=== PATIENT | female | born 1965 | race African-American/Black ===

== ENCOUNTER 2021-06-20 09:23 | Inpatient (IN) | payer OTHER ==
[~2021-06-20] VITALS: Ht 172.7 cm; Wt 88.5 kg
[2021-06-20 11:19] LABS: BASOPHILS % 0.2 % (0.0-2.0); EOSINOPHILS % 2.4 % (0.0-5.0); HEMATOCRIT. 31.7 % (36.0-48.0); HEMOGLOBIN. 10.1 g/dL (12.0-16.0); LYMPHOCYTES % 11.3 % (20.0-50.0); MEAN CORPUSCULAR HEMOGLOBIN 21.1 pg (28.0-32.0); MEAN CORPUSCULAR VOLUME 66.5 fL (81.0-99.0); MEAN PLATELET VOLUME 8.6 fl (7.4-10.4); MONOCYTES % 10.7 % (2.0-8.0); NEUTROPHILS % 75.4 % (40.0-76.0); PLATELET 403 x1000/uL (130-400); RED BLOOD CELL COUNT 4.76 mill/uL (4.2-5.4); RED CELL DISTRIBUTION WIDTH 22.1 % (11.6-14.6)
[2021-06-20 11:23] LABS: CHLORIDE 97 mEq/L (98-107)
[2021-06-20 11:31] LABS: CREATINE KINASE 51 IU/L (26-192); D-DIMER 1.05 mg/L FEU (<0.50); INR 1.1; PROTHROMBIN TIME 11.5 sec (9.6-11.0)
[2021-06-20 12:04] LABS: BG BASE EXCESS 4.1 mmol/L (-2.0-2.0); BG CARBOXYHEMOGLOBIN 0.3 % (0.5-1.5); BG DEOXYHEMOGLOBIN 3.4 % (0.0-5.0); BG FRACTION INSPIRED OXYGEN 32; BG HCO3 ACT 27.2 mmol/L (22.0-26.0); BG METHEMOGLOBIN 0.3 % (0.0-1.5); BG OXYGEN SATURATION 96.6 % (92.0-98.5); BG PCO2 35.4 mmHg (35.0-45.0); BG PH 7.503 (7.350-7.450); BG PO2 85.8 mmHg (75.0-100.0); BG SAMPLE SITE RIGHT BRACHIAL; BG TOTAL HEMOGLOBIN 11.2 g/dL (12.0-18.0)
[2021-06-20 12:23] LABS: PLATELET ESTIMATE SLIGHTLY INCREASED
[2021-06-20 12:25] LABS: FIBRINOGEN > 900 mg/dL (200-400)
[2021-06-20] MEDS ORDERED: CEFTRIAXONE 1 G PREMIX 50 ML IV ONE (13:15)
[2021-06-20] MEDS ORDERED: ONDANSETRON HCL 4MG/2ML INJ IV PRN (13:15)
[2021-06-20] MEDS ORDERED: AZITHROMYCIN 500 MG in DEXT 5% WATER 250 ML IV ONE (13:15)
[2021-06-20] MEDS: ACETAMINOPHEN 325MG TABLET PO PRN (13:39)
[2021-06-20] MEDS ORDERED: POTASSIUM CHLORIDE 20MEQ TABLET SR PO NR (15:00)
[2021-06-20 16:45] VITALS: BP 138/90
[2021-06-20] MEDS ORDERED: LOSA25TA26 MT (17:24)
[2021-06-20] MEDS ORDERED: ALBU2.5V13 NEB (17:24)
[2021-06-20] MEDS: ENOXAPARIN 40MG/0.4ML SYR SUBCUT SCH (18:29)
[2021-06-20 20:00] VITALS: BP 121/81
[2021-06-21] VITALS: BP 131/85
[2021-06-21] MEDS: KETOROLAC 15MG/ML VIAL IV PRN ×2 (00:44→21:29)
[2021-06-21 04:00] VITALS: BP 119/63
[2021-06-21] MEDS: DEXAMETHASONE 6MG TABLET PO SCH (07:54)
[2021-06-21] MEDS: ACETAMINOPHEN 325MG TABLET PO PRN (07:54)
[2021-06-21] MEDS: CEFTRIAXONE 1,000 MG in DEXTROSE 5% WATER 50 ML IV SCH (07:54)
[2021-06-21] MEDS: AZITHROMYCIN 250 MG TABLET PO SCH (07:55)
[2021-06-21 08:00] VITALS: BP 117/64
[2021-06-21 12:00] VITALS: BP 129/83
[2021-06-21] MEDS ORDERED: CEFTRIAXONE 1 G PREMIX 50 ML IV SCH (14:00)
[2021-06-21] MEDS ORDERED: IPRATROPIUM/ALBUTEROL 0.5-3(2.5)MG/3ML NEB HHN PRN (15:45)
[2021-06-21 16:00] VITALS: BP 125/77
[2021-06-21 16:26] LABS: BASOPHILS % 0.2 % (0.0-2.0); EOSINOPHILS % 0.2 % (0.0-5.0); HEMATOCRIT. 29.9 % (36.0-48.0); HEMOGLOBIN. 9.7 g/dL (12.0-16.0); LYMPHOCYTES % 12.3 % (20.0-50.0); MEAN CORPUSCULAR HEMOGLOBIN 21.7 pg (28.0-32.0); MEAN CORPUSCULAR VOLUME 66.6 fL (81.0-99.0); MEAN PLATELET VOLUME 8.8 fl (7.4-10.4); MONOCYTES % 4.5 % (2.0-8.0); NEUTROPHILS % 82.8 % (40.0-76.0); PLATELET 439 x1000/uL (130-400); RED BLOOD CELL COUNT 4.49 mill/uL (4.2-5.4); RED CELL DISTRIBUTION WIDTH 21.7 % (11.6-14.6)
[2021-06-21 16:45] LABS: CHLORIDE 98 mEq/L (98-107)
[2021-06-21] MEDS: ENOXAPARIN 40MG/0.4ML SYR SUBCUT SCH (18:09)
[2021-06-21 20:00] VITALS: BP 131/64
[2021-06-22] VITALS: BP 131/77
[2021-06-22 04:00] VITALS: BP 139/78
[2021-06-22 05:24] LABS: CLARITY URINE CLEAR (CLEAR); COLOR URINE YELLOW (YELLOW); KETONES URINE NEGATIVE (NEGATIVE); LEUKOCYTE ESTERASE URINE NEGATIVE (NEGATIVE); NITRITE URINE NEGATIVE (NEGATIVE); OCCULT BLOOD URINE NEGATIVE (NEGATIVE); PROTEIN URINE TRACE (NEGATIVE); SPECIFIC GRAVITY URINE 1.016 (1.005-1.030)
[2021-06-22] MEDS: KETOROLAC 15MG/ML VIAL IV PRN (06:15)
[2021-06-22 08:03] VITALS: BP 146/87
[2021-06-22] MEDS: DEXAMETHASONE 6MG TABLET PO SCH (09:18)
[2021-06-22] MEDS: LOSARTAN POTASSIUM 25 MG TABLET PO SCH (11:03)
[2021-06-22] MEDS: CEFTRIAXONE 1,000 MG in DEXTROSE 5% WATER 50 ML IV SCH (11:03)
[2021-06-22] MEDS: AZITHROMYCIN 250 MG TABLET PO SCH (11:03)
[2021-06-22 12:20] VITALS: BP 138/89
[2021-06-22 16:00] VITALS: BP 141/93
[2021-06-22] MEDS: HYDROCHLOROTHIAZIDE 12.5MG CAPSULE PO SCH (16:21)
[2021-06-22] MEDS: ENOXAPARIN 40MG/0.4ML SYR SUBCUT SCH (16:21)
[2021-06-22 20:00] VITALS: BP 142/80
[2021-06-22] MEDS: HYDROCODONE/ACETAMINOPHEN 5/325MG TABLET PO PRN (20:42)
[2021-06-22] MEDS ORDERED: NALOXONE HCL 0.4MG/ML VIAL IV PRN (22:45)
[2021-06-23] VITALS: BP 131/87
[2021-06-23 04:00] VITALS: BP 125/57
[2021-06-23 08:11] VITALS: BP 130/85
[2021-06-23] MEDS: AZITHROMYCIN 250 MG TABLET PO SCH (09:09)
[2021-06-23] MEDS: HYDROCHLOROTHIAZIDE 12.5MG CAPSULE PO SCH (09:09)
[2021-06-23] MEDS: DEXAMETHASONE 6MG TABLET PO SCH (09:09)
[2021-06-23] MEDS: LOSARTAN POTASSIUM 25 MG TABLET PO SCH (09:09)
[2021-06-23] MEDS: CEFTRIAXONE 1,000 MG in DEXTROSE 5% WATER 50 ML IV SCH (11:44)
[2021-06-23] MEDS: HYDROCODONE/ACETAMINOPHEN 5/325MG TABLET PO PRN (11:54)
[2021-06-23 12:00] VITALS: BP 155/89
[2021-06-23 16:05] VITALS: BP 150/99
[2021-06-23] MEDS: ENOXAPARIN 40MG/0.4ML SYR SUBCUT SCH (16:36)
[2021-06-23 20:00] VITALS: BP 109/76
[2021-06-24] VITALS: BP 130/83
[2021-06-24 04:00] VITALS: BP 138/92
[2021-06-24 08:00] VITALS: BP 142/96
[2021-06-24] MEDS: GUAIFENESIN-DM 200MG-20MG/10ML UDC PO PRN (09:05)
[2021-06-24] MEDS: HYDROCHLOROTHIAZIDE 12.5MG CAPSULE PO SCH (09:05)
[2021-06-24] MEDS: DEXAMETHASONE 6MG TABLET PO SCH (09:05)
[2021-06-24] MEDS: LOSARTAN POTASSIUM 25 MG TABLET PO SCH (09:05)
[2021-06-24] MEDS: AZITHROMYCIN 250 MG TABLET PO SCH (09:05)
[2021-06-24] MEDS: CEFTRIAXONE 1,000 MG in DEXTROSE 5% WATER 50 ML IV SCH (09:05)
[2021-06-24 12:00] VITALS: BP 135/91
[2021-06-24] MEDS: THROAT LOZENGES-BENZOCAINE/MENTH/CETYLPYRD CL LOZENGES MM PRN ×2 (12:25→22:35)
[2021-06-24] MEDS: ACETAMINOPHEN 325MG TABLET PO PRN (12:25)
[2021-06-24 16:00] VITALS: BP 134/82
[2021-06-24] MEDS: ENOXAPARIN 40MG/0.4ML SYR SUBCUT SCH (16:11)
[2021-06-24 19:51] VITALS: BP 126/81
[2021-06-25] VITALS: BP 139/82
[2021-06-25 04:00] VITALS: BP 144/89
[2021-06-25 08:00] VITALS: BP 145/93
[2021-06-25] MEDS: LOSARTAN POTASSIUM 25 MG TABLET PO SCH (08:49)
[2021-06-25] MEDS: HYDROCHLOROTHIAZIDE 12.5MG CAPSULE PO SCH (08:49)
[2021-06-25] MEDS: DEXAMETHASONE 6MG TABLET PO SCH (08:49)
[2021-06-25] MEDS: CEFTRIAXONE 1,000 MG in DEXTROSE 5% WATER 50 ML IV SCH (08:49)
[2021-06-25 12:00] VITALS: BP 129/84
[2021-06-25 16:00] VITALS: BP 149/93
[2021-06-25] MEDS: ENOXAPARIN 40MG/0.4ML SYR SUBCUT SCH (17:58)
[2021-06-25 20:00] VITALS: BP 151/97
[2021-06-25] MEDS: ACETAMINOPHEN 325MG TABLET PO PRN (21:13)
[2021-06-26] VITALS: BP 123/91
[2021-06-26 04:00] VITALS: BP 145/97
[2021-06-26 08:00] VITALS: BP 135/87
[2021-06-26] MEDS: HYDROCHLOROTHIAZIDE 12.5MG CAPSULE PO SCH (08:32)
[2021-06-26] MEDS: DEXAMETHASONE 6MG TABLET PO SCH (08:32)
[2021-06-26] MEDS: LOSARTAN POTASSIUM 25 MG TABLET PO SCH (08:33)
[2021-06-26 12:00] VITALS: BP 158/95
[2021-06-26] MEDS: ACETAMINOPHEN 325MG TABLET PO PRN (14:05)
[2021-06-26 16:00] VITALS: BP 135/91
[2021-06-26] MEDS: ENOXAPARIN 40MG/0.4ML SYR SUBCUT SCH (17:53)
[2021-06-26] MEDS: HYDROCODONE/ACETAMINOPHEN 5/325MG TABLET PO PRN (19:55)
[2021-06-26 20:00] VITALS: BP 118/79
[2021-06-27] VITALS: BP 140/85
[2021-06-27 04:00] VITALS: BP 141/84
[2021-06-27 08:00] VITALS: BP 130/88
[2021-06-27] MEDS: LOSARTAN POTASSIUM 25 MG TABLET PO SCH (09:10)
[2021-06-27] MEDS: HYDROCHLOROTHIAZIDE 12.5MG CAPSULE PO SCH (09:10)
[2021-06-27] MEDS: HYDROCODONE/ACETAMINOPHEN 5/325MG TABLET PO PRN ×4 (09:10→23:34)
[2021-06-27] MEDS: DEXAMETHASONE 6MG TABLET PO SCH (09:10)
[2021-06-27 12:00] VITALS: BP 142/100
[2021-06-27] MEDS ORDERED: ALBU18HF2 IH (12:37)
[2021-06-27 16:00] VITALS: BP 133/81
[2021-06-27] MEDS: ENOXAPARIN 40MG/0.4ML SYR SUBCUT SCH (16:40)
[2021-06-27 20:00] VITALS: BP 143/91
[2021-06-28] VITALS: BP 155/79
[2021-06-28 04:00] VITALS: BP 134/82
[2021-06-28 08:00] VITALS: BP 152/91
[2021-06-28] MEDS: LOSARTAN POTASSIUM 25 MG TABLET PO SCH ×2 (08:48→17:57)
[2021-06-28] MEDS: HYDROCHLOROTHIAZIDE 12.5MG CAPSULE PO SCH (08:48)
[2021-06-28] MEDS: DEXAMETHASONE 6MG TABLET PO SCH (08:48)
[2021-06-28 12:00] VITALS: BP 162/92
[2021-06-28 16:30] VITALS: BP 130/90
[2021-06-28 17:55] LABS: HEMATOCRIT 33.2 % (36.0-48.0); HEMOGLOBIN 10.5 g/dL (12.0-16.0); MEAN CORPUSCULAR HEMOGLOBIN 21.2 pg (28.0-32.0); MEAN CORPUSCULAR VOLUME 66.8 fL (81.0-99.0); PLATELET 689 x1000/uL (130-400); RED BLOOD CELL COUNT 4.97 mill/uL (4.2-5.4); RED CELL DISTRIBUTION WIDTH 21.7 % (11.6-14.6)
[2021-06-28] MEDS: ENOXAPARIN 40MG/0.4ML SYR SUBCUT SCH (17:56)
[2021-06-28 18:06] LABS: CHLORIDE 102 mEq/L (98-107)
[2021-06-28 20:30] VITALS: BP 133/91
[2021-06-28] MEDS: HYDROCODONE/ACETAMINOPHEN 5/325MG TABLET PO PRN (21:54)
[2021-06-28] MEDS ORDERED: IOHEXOL-350 100 ML BOTTLE ONE (23:25)
[2021-06-29] VITALS: BP 135/86
[2021-06-29 04:00] VITALS: BP 141/88
[2021-06-29 08:00] VITALS: BP 140/94
[2021-06-29] MEDS: LOSARTAN POTASSIUM 25 MG TABLET PO SCH ×2 (09:04→16:46)
[2021-06-29] MEDS: HYDROCHLOROTHIAZIDE 12.5MG CAPSULE PO SCH (09:04)
[2021-06-29] MEDS: DEXAMETHASONE 6MG TABLET PO SCH (09:04)
[2021-06-29 12:00] VITALS: BP 134/89
[2021-06-29] MEDS: ENOXAPARIN 40MG/0.4ML SYR SUBCUT SCH (16:46)
[2021-06-29 20:00] VITALS: BP 135/80
[2021-06-29] MEDS: ACETAMINOPHEN 325MG TABLET PO PRN (21:22)
[2021-06-30 04:00] VITALS: BP 144/85
[2021-06-30 08:00] VITALS: BP 134/91
[2021-06-30] MEDS: LOSARTAN POTASSIUM 25 MG TABLET PO SCH ×2 (09:09→17:14)
[2021-06-30] MEDS: DEXAMETHASONE 6MG TABLET PO SCH (09:09)
[2021-06-30] MEDS: HYDROCHLOROTHIAZIDE 12.5MG CAPSULE PO SCH (09:09)
[2021-06-30 12:00] VITALS: BP 138/88
[2021-06-30] MEDS: THROAT LOZENGES-BENZOCAINE/MENTH/CETYLPYRD CL LOZENGES MM PRN ×2 (15:10→21:55)
[2021-06-30 16:00] VITALS: BP 120/69
[2021-06-30] MEDS: ENOXAPARIN 40MG/0.4ML SYR SUBCUT SCH (17:14)
[2021-06-30] MEDS ORDERED: NALOXONE HCL 0.4MG/ML VIAL IV PRN (21:00)
[2021-06-30 21:06] VITALS: BP 125/87
[2021-06-30] MEDS: ACETAMINOPHEN 325MG TABLET PO PRN (21:52)
[2021-06-30] MEDS: GUAIFENESIN-DM 200MG-20MG/10ML UDC PO PRN (21:53)
[2021-07-01] VITALS: BP 147/80
[2021-07-01 04:00] VITALS: BP 145/79
[2021-07-01 07:37] VITALS: BP 137/103
[2021-07-01 08:00] VITALS: BP 137/103
[2021-07-01] MEDS: LOSARTAN POTASSIUM 25 MG TABLET PO SCH (09:00)
[2021-07-01] MEDS: HYDROCHLOROTHIAZIDE 12.5MG CAPSULE PO SCH (09:00)
[2021-07-01] MEDS: DEXAMETHASONE 6MG TABLET PO SCH (09:00)
== END 2021-07-01 09:11 | disposition home or self-care (01) | DRG 871 ==
LOC: ER 09:23 → 7WST 13:37 → EDBEDREQ 13:41 → EDBEDREQTM 13:41 → ENRESERV 14:14 → 6WST 06-21 08:33 → 7WST 06-22 13:45 → 7EST 06-24 22:30
PROVIDERS: ADMIT Internal Medicine; ATTEND Internal Medicine
DX: A41.89 Other specified sepsis (principal); U07.1 COVID-19; J96.01 Acute respiratory failure with hypoxia; J12.82 Pneumonia due to coronavirus disease 2019; E43 Unspecified severe protein-calorie malnutrition; E87.1 Hypo-osmolality and hyponatremia; I10 Essential (primary) hypertension; E87.8 Other disorders of electrolyte and fluid balance, not elsewhere classified; E87.6 Hypokalemia; D50.9 Iron deficiency anemia, unspecified; I45.9 Conduction disorder, unspecified; E66.9 Obesity, unspecified; R74.01 Elevation of levels of liver transaminase levels; Z79.899 Other long term (current) drug therapy; Z79.51 Long term (current) use of inhaled steroids; Z86.16 Personal history of COVID-19; Z71.3 Dietary counseling and surveillance; Z68.29 Body mass index [BMI] 29.0-29.9, adult
CPT/HCPCS: 36415; 36600; 71045; 71275; 80048; 80053; 81003; 82375; 82550; 82728; 82805; 83605; 83615; 84145; 84484; 85025; 85027; 85379; 85384; 86140; 87106; 87426; 87804; 93005; 93306; 94618; 94640; 99291; C1893; J0456; J0696; J1650; J1885; J7060; Q9967; U0003; U0005